=== PATIENT | female | born 1960 | race American Indian/Alaskan Native ===

== ENCOUNTER 2018-04-19 22:32 | Emergency (ER) | payer BC ==
[2018-04-19 22:32] VITALS: BMI 40.5
[2018-04-19] MEDS ORDERED: Albuterol-Ipratrop 3 mg / 0.5 (3 ml) UD IH STA (22:58)
[2018-04-19] MEDS ORDERED: Albuterol-Ipratrop 3 mg / 0.5 (3 ml) UD ONE (22:59)
--- NOTE | 2018-04-19 23:12 | ED PDOC ---
Arrival/HPI - General Chief Complaint: Cough, Cold, Congestion Time Seen by Provider: 04/19/18 22:35 Historian: Patient - History of Present Illness Narrative History of Present Illness (Text): 04/19/18 23:13 57 year old female, whose past medical history includes hypertension, presents to the emergency department with flu-like symptoms, since today. Patient states she has a mildly productive cough. Patient also states her chest hurts when coughing. Patient informs she did not get her flu shot. Patient denies any headache, dizziness, abdominal pain, nausea, vomiting, diarrhea, back pain, neck pain, or any other complaint. PMD: Dr Wallace Time/Duration: Prior to Arrival, 24 hours Past Medical History - Provider Review Nursing Documentation Reviewed: Yes - Infectious Disease Hx of Infectious Diseases: None - Cardiac Hx Pacemaker: No - Neurological Hx Paralysis: No - Hematological/Oncological Hx Blood Transfusions: No - Musculoskeletal/Rheumatological Hx Musculoskeletal Disorders: No - Genitourinary/Gynecological Hx Genitourinary Disorders: Yes Other/Comment: HYSTERECTOMY,C SECTION - Psychiatric Hx Emotional Abuse: No Hx Physical Abuse: No Hx Substance Use: No - Surgical History Hx Hysterectomy: Yes Other/Comment: C SECTION X 1 - Anesthesia Hx Anesthesia Reactions: No Hx Malignant Hyperthermia: No - Suicidal Assessment Feels Threatened In Home Enviroment: No Family/Social History - Physician Review Nursing Documentation Reviewed: Yes Family/Social History: No Known Family HX Smoking Status: Former Smoker Hx Alcohol Use: Yes (OCCASIONALLY) Hx Substance Use: No Allergies/Home Meds Allergies/Adverse Reactions: Allergies No Known Allergies Allergy (Verified 04/02/15 18:02) Home Medications: Home Meds Medication Instructions Recorded Confirmed Valsartan [Diovan] 80 mg PO QAM 04/17/15 04/27/15 Fluticasone/Salmeterol 500/50 2 puff INH DAILY 04/19/18 04/19/18 [Advair Diskus 500/50] RX: Losartan [Cozaar] 50 mg PO DAILY 04/19/18 04/19/18 Review of Systems - Review of Systems Respiratory: Cough Cardiovascular: Chest Pain (Chest discomfort from cough) Gastrointestinal: absent: Abdominal Pain, Diarrhea, Nausea, Vomiting Musculoskeletal: absent: Back Pain, Neck Pain Neurological: absent: Headache, Dizziness Physical Exam Vital Signs Reviewed: Yes Vital Signs Temp Pulse Resp BP Pulse Ox 04/19/18 23:03 100.6 F H 04/19/18 22:51 100.6 F H 98 H 19 176/93 H 93 L Temperature: Febrile Blood Pressure: Hypertensive Pulse: Tachycardic Respiratory Rate: Normal Appearance: Positive for: Well-Appearing, Non-Toxic, Comfortable Pain Distress: None Mental Status: Positive for: Alert and Oriented X 3 - Systems Exam Head: Present: Atraumatic, Normocephalic Pupils: Present: PERRL Extroacular Muscles: Present: EOMI Conjunctiva: Present: Normal Mouth: Present: Moist Mucous Membranes Neck: Present: Normal Range of Motion Respiratory/Chest: Present: Clear to Auscultation, Good Air Exchange. No: Respiratory Distress, Accessory Muscle Use Cardiovascular: Present: Regular Rate and Rhythm, Normal S1, S2. No: Murmurs Abdomen: No: Tenderness, Distention, Peritoneal Signs Back: Present: Normal Inspection Upper Extremity: Present: Normal Inspection. No: Cyanosis, Edema Lower Extremity: Present: Normal Inspection. No: Edema Neurological: Present: GCS=15, CN II-XII Intact, Speech Normal Skin: Present: Warm, Dry, Normal Color. No: Rashes Psychiatric: Present: Alert, Oriented x 3, Normal Insight, Normal Concentration Medical Decision Making ED Course and Treatment: 04/19/18 23:18 Impression: 57 year old female presents with flu-like symptoms. Plan: -- Chest X-ray -- Duoneb -- Tylenol -- Rapid Flu AB -- Reassess and disposition Prior Visits: Notes and results from previous visits were reviewed Progress Notes: - RAD Interpretation Radiology Orders: 04/19/18 22:57 CHEST TWO VIEWS (PA/LAT) [RAD] Stat - Medication Orders Current Medication Orders: Discontinued Medications Acetaminophen (Tylenol 325mg Tab) 650 mg PO STAT STA Stop: 04/19/18 22:59 Last Admin: 04/19/18 23:03 Dose: 650 mg MAR Pain/Vitals Document 04/19/18 23:03 NEMO (Rec: 04/19/18 23:03 NEMO [id number]) Pain Reassessment Is This A Pain ReAssessment? No Sleep Is patient sleeping during reassessment? No Presence of Pain Presence of Pain No Vitals Temperature (97.6 F-99.6 F) 100.6 F Temperature Source Oral Albuterol/Ipratropium (Duoneb 3 Mg/0.5 Mg (3 Ml) Ud) 3 ml IH ONCE STA Stop: 04/19/18 22:59 Last Admin: 04/19/18 23:02 Dose: 3 ml - Scribe Statement The provider has reviewed the documentation as recorded by the Scribe Mango Wesley Provider Scribe Attestation: All medical record entries made by the Scribe were at my direction and personally dictated by me. I have reviewed the chart and agree that the record accurately reflects my personal performance of the history, physical exam, medical decision making, and the department course for this patient. I have also personally directed, reviewed, and agree with the discharge instructions and disposition. Disposition/Present on Arrival - Present on Arrival Any Indicators Present on Arrival: No History of DVT/PE: No History of Uncontrolled Diabetes: No Urinary Catheter: No History of Decub. Ulcer: No History Surgical Site Infection Following: None - Disposition Have Diagnosis and Disposition been Completed?: Yes Diagnosis: Bronchitis, Influenza-like symptoms Disposition: HOME/ ROUTINE Disposition Time: 01:09 Patient Plan: Discharge Condition: GOOD Discharge Instructions (ExitCare): Acute Bronchitis, Adult (DC) Additional Instructions: Rest/drink plenty of liquids/take meds as prescribed/tylenol as directed/follow up with your doctor this week Prescriptions: Oseltamivir Cap [Tamiflu] 75 mg PO BID #10 cap Benzonatate [Tessalon Perles] 100 mg PO TID PRN #21 sgl PRN Reason: Cough Azithromycin [Z-Nishant] 250 mg PO DAILY #6 tab Referrals: Victor Manuel Wallace DO [Primary Care Provider] - Follow up with primary Forms: [employer] ([employer])
[2018-04-20 01:36] VITALS: BP 142/78; PULSE 88; RESP 18; TEMP 98.9; O2SAT 95
--- NOTE | 2018-04-20 09:23 | RAD ---
Date of service: 04/19/2018 HISTORY: cough COMPARISON: Chest 04/02/2015. The the the the TECHNIQUE: Chest PA and lateral FINDINGS: LUNGS: No active pulmonary disease. PLEURA: No significant pleural effusion identified. No pneumothorax apparent. CARDIOVASCULAR: No aortic atherosclerotic calcification present. Normal cardiac size. No pulmonary vascular congestion. OSSEOUS STRUCTURES: Mild multilevel degenerative spondylosis of the thoracic spine. VISUALIZED UPPER ABDOMEN: Normal. OTHER FINDINGS: None. IMPRESSION: No active disease.
== END 2018-04-20 01:30 | disposition home or self-care (01) ==
LOC: ED 22:32
DX: J40 Bronchitis, not specified as acute or chronic (principal); J11.1 Influenza due to unidentified influenza virus with other respiratory manifestations; Z87.891 Personal history of nicotine dependence